=== PATIENT | female | born 1995 | race African-American/Black ===

== ENCOUNTER 2017-01-13 21:37 | Emergency (ER) | payer MEDICAID, OTHER ==
[~2017-01-13] VITALS: Ht 165.1 cm; Wt 79.9 kg
[~2017-01-13 21:37] MED LIST: IBUP-232 PO; OXYC1TAB63 PO
[2017-01-13 22:03] VITALS: BP 114/86; PULSE 79; RESP 20; TEMP 98.5; O2SAT 98
[2017-01-13] MEDS ORDERED: SODIUM CHLORIDE 0.9% FLUSH 5 ML FLUSH IVF PRN (22:45)
[2017-01-13 22:59] LABS: AUTOMATED NEUTROPHIL # 5.1 TH/MM3 (1.8-7.7); BASOPHIL # 0.2 TH/MM3 (0-0.2); BASOPHIL % 2.1 % (0.0-2.0); EOSINOPHIL # 0.2 TH/MM3 (0-0.4); EOSINOPHIL % 2.4 % (0.0-4.0); HEMATOCRIT 39.4 % (35.0-46.0); HEMO FLAGS DIFF FINAL; LYMPH % 30.4 % (9.0-44.0); LYMPHOCYTE # 2.6 TH/MM3 (1.0-4.8); MEAN CELL VOLUME 85.8 FL (80.0-100.0); MEAN CORPUSCULAR HEMOGLOBIN 28.4 PG (27.0-34.0); MEAN CORPUSCULAR HGB CONC 33.1 % (32.0-36.0); MONO % 6.9 % (0.0-8.0); NEUT % 58.2 % (16.0-70.0); PLATELET COUNT 255 TH/MM3 (150-450); RED BLOOD COUNT 4.59 MIL/MM3 (4.00-5.30); WHITE BLOOD COUNT 8.7 TH/MM3 (4.0-11.0)
[2017-01-13 23:08] LABS: POTASSIUM 3.6 MEQ/L (3.5-5.1)
[2017-01-13 23:09] LABS: BLOOD, URINE NEG (NEG); GLUCOSE,URINE NEG (NEG); KETONE, URINE NEG (NEG); NITRITE,URINE NEG (NEG)
[2017-01-13 23:12] LABS: BICARBONATE 25.9 MEQ/L (21.0-32.0)
[2017-01-13 23:25] LABS: URINE COLOR YELLOW (YELLW/STRAW)
[2017-01-13 23:26] LABS: BACTERIA, URINE FEW /hpf; MUCUS URINE FEW /lpf (OCC)
[2017-01-13 23:28] LABS: COMMENT (UR) CULT NOT INDICATED; CULTURE IF INDICATED CULT NOT INDICATED
[2017-01-13 23:35] VITALS: BP_SYST 121; BP_SYST 123; BP_SYST 133; BP_DIAS 54; BP_DIAS 56; BP_DIAS 64
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
[2017-01-14] MEDS ORDERED: ACETAMINOPHEN 325 MG TAB PO ONE (00:45)
== END 2017-01-14 00:48 | disposition home or self-care (01) ==
LOC: PHED 21:37
DX: M54.2 Cervicalgia (principal); R42 Dizziness and giddiness
CPT/HCPCS: 80048; 81001; 84703; 85025; 99283

== ENCOUNTER 2017-02-16 11:44 | Emergency (ER) | payer MEDICAID, OTHER ==
[~2017-02-16] VITALS: Ht 165.1 cm; Wt 79.8 kg
[2017-02-16 11:57] VITALS: BP 131/71; PULSE 83; RESP 16; TEMP 98.8; O2SAT 98
[2017-02-16 12:18] LABS: GLUCOSE,URINE NEG (NEG); KETONE, URINE NEG (NEG); NITRITE,URINE NEG (NEG); PH, URINE 5.5 (5.0-8.5)
[2017-02-16 12:25] LABS: BLOOD, URINE MOD (NEG)
--- NOTE | 2017-02-16 12:25 | PD ---
HPI . 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 The patient delivered a baby 5 months ago. She is breast-feeding. She has not yet had her first period following delivery. Denies any vaginal discharge or dyspareunia prior to the onset of her symptoms. She does complain of urinary frequency. No dysuria. PFSH Past Medical History ADHD: Yes (TOOK ADDERALL 2 YRS AGO) Asthma: Yes Anxiety: Yes Depression: Yes Developmental Delay: No Diabetes: No Diminished Hearing: No Immunizations Current: Yes Pneumonia: Yes (X 1) Tetanus Vaccination: < 5 Years Influenza Vaccination: Yes ?: Not LMP: no menses breast feeding Menopausal: No : 2 Para: 1 : 1 Social History Alcohol Use: No Tobacco Use: No Substance Use: No Allergies-Medications (Allergen,Severity, Reaction): Coded Allergies: No Known Allergies (Unverified , 02/16/17) Reported Meds & Prescriptions Reported Meds & Active Scripts Active No Active Prescriptions or Reported Medications Review of Systems Except as stated in HPI: all other systems reviewed are Neg Genitourinary: Positive: Frequency, Pelvic Pain, Vaginal Bleeding, No: Dysuria Physical Exam Narrative GENERAL: SKIN: Warm and dry. HEAD: Atraumatic. Normocephalic. EYES: Pupils equal and round. ENT: No nasal bleeding or discharge. Mucous membranes pink and moist. NECK: Trachea midline. CARDIOVASCULAR: Regular rate and rhythm. RESPIRATORY: No accessory muscle use. GASTROINTESTINAL: Abdomen soft, non-tender, nondistended. : Normal external female genitalia. Mild amount of old appearing blood in the vaginal vault. Cervical os is closed. There is no cervical motion tenderness. There is no adnexal tenderness or mass. MUSCULOSKELETAL: No obvious deformities. No edema. NEUROLOGICAL: Awake and alert. No obvious cranial nerve deficits. Motor grossly within normal limits. Normal speech. PSYCHIATRIC: Appropriate mood and affect; insight and judgment normal. Data Data Last Documented VS Vital Signs Date Time Temp Pulse Resp B/P Pulse Ox O2 Delivery O2 Flow Rate FiO2 02/16/17 11:57 98.8 83 16 131/71 98 Orders Gc And Chlamydia Pcr (02/16/17 12:08) Wet Prep Profile (02/16/17 12:08) Urinalysis - C+S If Indicated (02/16/17 12:08) Ed Urine Pregnancytest Poc (02/16/17 12:08) Labs Laboratory Tests Test 02/16/17 02/16/17 12:10 12:20 Urine Collection Type CLEAN CATCH Urine Color STRAW Urine Turbidity CLEAR Urine pH 5.5 Urine Specific [place] 1.002 Urine Protein NEG mg/dL Urine Glucose (UA) NEG mg/dL Urine Ketones NEG mg/dL Urine Occult Blood MOD Urine Nitrite NEG Urine Bilirubin NEG Urine Leukocyte Esterase NEG Urine WBC 0-2 /hpf Urine Squamous Epithelial 0-5 /hpf Cells Microscopic Urinalysis Comment CULT NOT INDICATED Urine Collection Time 1210 Clue Cells (Wet Prep) NONE SEEN Vaginal Trichomonas (Wet Prep) NONE SEEN Vaginal Yeast (Wet Prep) NONE SEEN MDM Medical Decision Making Medical Screen Exam Complete: Yes Emergency Medical Condition: Yes Differential Diagnosis Differential diagnosis of vaginal bleeding includes but is not limited to dysfunctional uterine bleeding, normal menstrual cycle, ectopic , spontaneous AB, PID. Narrative Course Patient presents with mild pelvic pain and vaginal bleeding. She is 5 months status post delivery. She has not yet had a period. I suspect that she is having her first menstrual cycle. Her urine test is negative. UA is negative. Wet prep is negative. 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
[2017-02-16 12:28] LABS: METHOD OF COLLECTION CLEAN CATCH; URINE COLOR STRAW (YELLW/STRAW)
[2017-02-16 12:29] LABS: COMMENT (UR) CULT NOT INDICATED; CULTURE IF INDICATED CULT NOT INDICATED; SQUAMOUS EPITHELIAL CELL URINE 0-5 /hpf (0-5); WBC, URINE 0-2 /hpf (0-5)
[2017-02-16 13:17] VITALS: BP 99/56; PULSE 71; RESP 14; O2SAT 98
[2017-02-16 18:13] LABS: CHLAMYDIA PCR NOT DETECTED (NOT DETECT); NEISSERIA PCR NOT DETECTED (NOT DETECT)
== END 2017-02-16 13:30 | disposition home or self-care (01) ==
LOC: PHED 11:44
DX: N93.9 Abnormal uterine and vaginal bleeding, unspecified (principal)
CPT/HCPCS: 81001; 84703; 87210; 87491; 87591; 99284

== ENCOUNTER 2017-02-19 16:38 | Emergency (ER) | payer MEDICAID, OTHER ==
[~2017-02-19] VITALS: Ht 165.1 cm; Wt 80.0 kg
[2017-02-19 16:40] VITALS: BP 115/61; PULSE 86; RESP 18; TEMP 98.1; O2SAT 98
[2017-02-19] MEDS ORDERED: ADVI200C5 PO (16:42)
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
--- NOTE | 2017-02-19 18:22 | RADHPO ---
EXAM DATE/TIME: 02/19/2017 17:46 [facility] COMPARISON: No previous studies available for comparison. INDICATIONS : Neck pain. RADIATION DOSE: 26.53 CTDIvol (mGy) MEDICAL HISTORY : None SURGICAL HISTORY : None. ENCOUNTER: Initial ACUITY: 1 day PAIN SCALE: 8/10 LOCATION: Bilateral neck TECHNIQUE: Volumetric scanning of the cervical spine was performed. Multiplanar reconstructions in the sagittal, coronal and oblique axial planes were performed. Using automated exposure control and adjustment o f the mA and/or kV according to patient size, radiation dose was kept as low as reasonably achievable to obtain optimal diagnostic quality images. FINDINGS: There is slight cervical kyphosis. No spondylolisthesis. There is no evidence of cervical spine fract ure. No bony canal or foraminal stenosis is identified. There is no evidence of paraspinal hematoma. CONCLUSION: No acute bony injury in the cervical spine. Kwan Malik MD on February 19, 2017 at 18:19 Board Certified Radiologist. This report was verified electronically.
--- NOTE | 2017-02-19 18:24 | RADHPO ---
EXAM DATE/TIME: 02/19/2017 17:46 [facility] COMPARISON: No previous studies available for comparison. INDICATIONS : Cepahlgia. RADIATION DOSE: 60.83 CTDIvol (mGy) MEDICAL HISTORY : None SURGICAL HISTORY : None. ENCOUNTER: Initial ACUITY: 1 day PAIN SCALE: 8/10 LOCATION: cranial TECHNIQUE: Multiple contiguous axial images were obtained of the head. Using automated exposure control and adj ustment of the mA and/or kV according to patient size, radiation dose was kept as low as reasonably a chievable to obtain optimal diagnostic quality images. FINDINGS: CEREBRUM: The ventricles are normal for age. No evidence of midline shift, mass lesion, hemorrhage or acute in farction. No extra-axial fluid collections are seen. POSTERIOR FOSSA: The cerebellum and brainstem are intact. The 4th ventricle is midline. The cerebellopontine angle i s unremarkable. EXTRACRANIAL: The visualized portion of the orbits is intact. SKULL: The calvaria is intact. No evidence of skull fracture. CONCLUSION: Normal examination. Kwan Malik MD on February 19, 2017 at 18:21 Board Certified Radiologist. This report was verified electronically.
== END 2017-02-19 18:42 | disposition home or self-care (01) ==
LOC: PHEFT 16:38
DX: M54.2 Cervicalgia (principal)
CPT/HCPCS: 70450; 72125

== ENCOUNTER 2017-02-28 11:27 | Emergency (ER) | payer MEDICAID, OTHER ==
[~2017-02-28] VITALS: Ht 165.1 cm; Wt 79.5 kg
[~2017-02-28 11:27] MED LIST changes: +ADVI200C5 PO; -IBUP-232 PO; -OXYC1TAB63 PO
[2017-02-28 11:29] VITALS: BP 126/66; PULSE 92; RESP 16; TEMP 98.6; O2SAT 98
--- NOTE | 2017-02-28 11:40 | PD ---
Physical Exam Date Seen by Provider: Feb 28, 2017 Time Seen by Provider: 11:37 Narrative Patient here with Left Eye "Flash" with secondary GARCIA since last night. Patient denies Fever or Eye discharge. Patient denies Hx Migraine. GARCIA now 05/18. No Nausea or Vomiting. + photophobia today. V/S reviewed and Stable. Patient awaiting Medical Bed placement. Data Data Last Documented VS Vital Signs Date Time Temp Pulse Resp B/P Pulse Ox O2 Delivery O2 Flow Rate FiO2 02/28/17 11:29 98.6 92 16 126/66 98 Room Air [facility] Medical Record Reviewed: Yes Supervised Visit with BRENT: Yes Condition: Stable Tad Bravo Feb 28, 2017 11:40
--- NOTE | 2017-02-28 12:58 | PD ---
HPI Chief Complaint: Eye Problems/Injury Time Seen by Provider: 12:44 Travel History International Travel<30 days: No Contact w/Intl Traveler<30days: No Traveled to known affect area: No History of Present Illness HPI Patient 21-year-old female presents emergency department for evaluation of some mild blurred vision in the left eye associated with a flash of light that she had last night. Patient states she's had a mild headache bifrontal since that time as well. She googled her symptoms at home and thought she might have a retinal detachment. She does wear glasses. She denies any injuries to her head nor by. Denies any fevers. States she's not had this kind of thing happen to her in the past. She is not taking anything prior to arrival to alleviate her symptoms. [facility] Past Medical History ADHD: Yes (TOOK ADDERALL 2 YRS AGO) Asthma: Yes Anxiety: Yes Depression: Yes Developmental Delay: No Diabetes: No Diminished Hearing: No Herniated Disk: Yes Immunizations Current: Yes Pneumonia: Yes (X 1) ?: Not LMP: 02/21/2017 Menopausal: No : 2 Para: 1 : 1 Social History Alcohol Use: No Tobacco Use: No Substance Use: No Allergies-Medications (Allergen,Severity, Reaction): Coded Allergies: No Known Allergies (Unverified , 02/28/17) Reported Meds & Prescriptions Reported Meds & Active Scripts Active Reported Advil (Ibuprofen) 200 Mg Cap 600 Mg PO ONCE PRN Review of Systems Except as stated in HPI: all other systems reviewed are Neg Physical Exam Narrative GENERAL: Well-developed well-nourished no apparent distress per SKIN: Warm and dry. HEAD: Normocephalic. EYES: No scleral icterus. No injection or drainage. Extra movements are intact and nonpainful. No floor seen uptake bilaterally, Edmond-Pen shows 15 on the left eye. Visual feng are intact. Pupils are PERRLA. No abnormalities are seen. 20/25 in the left eye 20/25 in the right eye 20/20 in both eyes. Funduscopy shows no papilledema, red reflex present bilaterally. No retinal abnormality is seen. NECK: Supple, trachea midline. No JVD or lymphadenopathy. CARDIOVASCULAR: Regular rate and rhythm without murmurs, gallops, or rubs. RESPIRATORY: Breath sounds equal bilaterally. No accessory muscle use. GASTROINTESTINAL: Abdomen soft, non-tender, nondistended. MUSCULOSKELETAL: No cyanosis, or edema. BACK: Nontender without obvious deformity. No CVA tenderness. Data Data Last Documented VS Vital Signs Date Time Temp Pulse Resp B/P Pulse Ox O2 Delivery O2 Flow Rate FiO2 02/28/17 11:29 98.6 92 16 126/66 98 Room Air Orders Ed Poc Ultrasound (02/28/17 ) Proparacaine 0.5% Opth Soln (Alcaine 0.5 (02/28/17 13:00) Fluorescein Strip (Eaadc-L-Cpunkn A.T.) (02/28/17 13:00) Acetaminophen (Tylenol) (02/28/17 14:00) MDM Medical Decision Making Medical Screen Exam Complete: Yes Emergency Medical Condition: Yes Differential Diagnosis Blurred vision, visual disturbance, random detachment likely, cough, likely, conjunctival hemorrhage unlikely. Acute intracranial abnormality extremely unlikely. Narrative Course Patient was roomed in the emergency department, she appears well in no apparent distress. she is breast-feeding was offered Tylenol for her pain which she accepted. Her eye exam is completely within normal limits. Vision is intact. Discussed with the patient this could represent complex migraine however I recommended that she follow up with her facetor for complete eye exam. She is agreeable at this time. She stable for discharge. Diagnosis Primary Impression: Blurred vision, left eye Additional Instructions: Recommend follow-up with your facetor by phone on Thursday. If her symptoms worsen the return to the ED. Disposition: 01 DISCHARGE HOME Condition: Stable Ryan Nicole MD Feb 28, 2017 12:58
[2017-02-28] MEDS ORDERED: PROPARACAINE HCL 0.5% OPHT SOLN 15 ML BTL EACH EYE ONE (13:00)
[2017-02-28] MEDS ORDERED: FLUORESCEIN SOD 1 MG STRIP EACH EYE ONE (13:00)
[2017-02-28] MEDS ORDERED: ACETAMINOPHEN 325 MG TAB PO ONE (14:00)
== END 2017-02-28 13:49 | disposition home or self-care (01) ==
LOC: NEPD 11:27
DX: H53.8 Other visual disturbances (principal); R51 Headache; Z87.09 Personal history of other diseases of the respiratory system; Z87.39 Personal history of other diseases of the musculoskeletal system and connective tissue; Z87.01 Personal history of pneumonia (recurrent); Z86.59 Personal history of other mental and behavioral disorders
CPT/HCPCS: 99283

== ENCOUNTER 2017-03-02 20:51 | Emergency (ER) | payer MEDICAID, OTHER ==
[~2017-03-02] VITALS: Ht 165.1 cm; Wt 79.5 kg
[2017-03-02 20:53] VITALS: BP 131/74; PULSE 75; RESP 16; TEMP 98.2; O2SAT 99
[2017-03-02] MEDS ORDERED: predniSONE 20 MG TAB PO ONE (21:30)
[2017-03-02] MEDS: RESP: ALBUTEROL 2.5 MG/IPRATROPIUM 0.5 MG NEB (SCH) INH ×2 (22:37→22:38)
[2017-03-03] MEDS ORDERED: PRED20 PO
[2017-03-03] MEDS ORDERED: ALBUAER3 INH
--- NOTE | 2017-03-03 | PD ---
HPI Chief Complaint: Respiratory Distress Time Seen by Provider: 21:16 Travel History International Travel<30 days: No Contact w/Intl Traveler<30days: No Traveled to known affect area: No History of Present Illness HPI Patient is a 21-year-old female who presents to emergency room with complaint of asthma exacerbation. She reports that symptoms began 30 minutes prior to coming to emergency room. Patient reports that she did not have a rescue inhaler so she came to emergency room for evaluation. Patient denies any fevers or chills. Denies cough or congestion. PFSH Past Medical History ADHD: Yes (TOOK ADDERALL 2 YRS AGO) Asthma: Yes Anxiety: Yes Depression: Yes Developmental Delay: No Diabetes: No Diminished Hearing: No Herniated Disk: Yes Respiratory: Yes (ASTHMA) Immunizations Current: Yes Pneumonia: Yes (X 1) Tetanus Vaccination: Unknown Influenza Vaccination: No ?: Not LMP: 02-21-17 Menopausal: No : 1 Para: 1 : 1 Past Surgical History Surgical History: No Previous Surgery Social History Alcohol Use: No Tobacco Use: No Substance Use: No Allergies-Medications (Allergen,Severity, Reaction): Coded Allergies: No Known Allergies (Unverified , 03/02/17) Reported Meds & Prescriptions Reported Meds & Active Scripts Active Prednisone 20 Mg Tab 20 Mg PO BID 5 Days Proair Hfa 8.5 GM Inh (Albuterol Sulfate) 90 Mcg/Act Aer 2 Puff INH Q4-6H PRN 108 mcg/actuation Review of Systems General / Constitutional: No: Fever Eyes: No: Visual changes HENT: No: Headaches Cardiovascular: No: Chest Pain or Discomfort Respiratory: Positive: Shortness of Breath, Wheezing, No: Cough Gastrointestinal: No: Abdominal Pain Genitourinary: No: Dysuria Musculoskeletal: No: Pain Skin: No Rash Neurologic: No: Weakness Psychiatric: No: Depression Endocrine: No: Polydipsia Hematologic/Lymphatic: No: Easy Bruising Physical Exam Narrative GENERAL: No acute distress, nontoxic SKIN: Focused skin assessment warm/dry. HEAD: Atraumatic. Normocephalic. EYES: Pupils equal and round. No scleral icterus. No injection or drainage. ENT: No nasal bleeding or discharge. Mucous membranes pink and moist. NECK: Trachea midline. No JVD. CARDIOVASCULAR: Regular rate and rhythm. No murmur appreciated. RESPIRATORY: No accessory muscle use. Minimal wheezing on exam. Breath sounds equal bilaterally. GASTROINTESTINAL: Abdomen soft, non-tender, nondistended. Hepatic and splenic margins not palpable. MUSCULOSKELETAL: No obvious deformities. No clubbing. No cyanosis. No edema. NEUROLOGICAL: Awake and alert. No obvious cranial nerve deficits. Motor grossly within normal limits. Normal speech. PSYCHIATRIC: Appropriate mood and affect; insight and judgment normal. Data Data Last Documented VS Vital Signs Date Time Temp Pulse Resp B/P Pulse Ox O2 Delivery O2 Flow Rate FiO2 03/02/17 21:14 67 20 97 03/02/17 20:53 98.2 131/74 Room Air Orders Prednisone (Deltasone) (03/02/17 21:30) Albuterol-Ipratropium Neb (Duoneb Neb) (03/02/17 21:30) [facility] Medical Decision Making Medical Screen Exam Complete: Yes Emergency Medical Condition: Yes Interpretation(s) Vital Signs Date Time Temp Pulse Resp B/P Pulse Ox O2 Delivery O2 Flow Rate FiO2 03/02/17 21:14 67 20 97 03/02/17 20:53 98.2 75 16 131/74 99 Room Air Differential Diagnosis Asthma exacerbation Narrative Course 21-year-old female with history of asthma, presents to emergency room with complaints of asthma exacerbation. Patient reports the symptoms of shortness of breath and wheezing began 30 minutes prior to arrival to emergency room. Patient was given steroids as well as neb treatments. Patient ultimately felt better after her treatments. Patient discharged home with steroids and neb treatments. Signs and symptoms of when to return to the emergency room was reviewed patient in detail. Diagnosis Primary Impression: Asthma Qualified Code: J45.909 - Uncomplicated asthma, unspecified asthma severity Patient Instructions: General Instructions Additional Instructions: Please follow up with the primary care doctor in 2-3 days Return to the emergency room as needed Take all medications as prescribed Med/Other Pt SpecificInfo: Prescription(s) given Scripts Prednisone 20 Mg Tab20 Mg PO BID 5 Days Ref 0 Prov:Heather Hahn DO 03/03/17 Albuterol 8.5 GM Inh (Proair Hfa 8.5 GM Inh)90 Mcg/Act Aer2 Puff INH Q4-6H PRN ( SHORTNESS OF BREATH) #1 INHALER Ref 0 108 mcg/actuation Prov:Heather Hahn DO 03/03/17 Disposition: 01 DISCHARGE HOME Condition: Stable Heather Hahn DO Mar 03, 2017 00:00
[2017-03-03] MEDS ORDERED: COMPRESSOR NEBU1 MIS ×2 (22:38→22:39)
[2017-03-03] MEDS ORDERED: ALBU.5I NEB (22:38)
== END 2017-03-03 00:13 | disposition home or self-care (01) ==
LOC: NEPD 20:51
DX: J45.909 Unspecified asthma, uncomplicated (principal)
CPT/HCPCS: 94640; 94664; 99283; J7512

== ENCOUNTER 2017-03-03 21:35 | Emergency (ER) | payer MEDICAID, OTHER ==
[~2017-03-03] VITALS: Ht 165.1 cm; Wt 79.0 kg
[~2017-03-03 21:35] MED LIST changes: -ADVI200C5 PO; +ALBUAER3 INH; +PRED20 PO
[2017-03-03 21:40] VITALS: BP 128/68; PULSE 85; RESP 18; TEMP 98.1; O2SAT 97
[2017-03-03 21:50] VITALS: O2SAT 98
[2017-03-03] MEDS ORDERED: RESP: ALBUTEROL 2.5 MG/IPRATROPIUM 0.5 MG NEB (SCH) INH ONE (22:15)
--- NOTE | 2017-03-03 22:18 | PD ---
HPI Chief Complaint: Respiratory Symptoms Time Seen by Provider: 22:15 Travel History International Travel<30 days: No Contact w/Intl Traveler<30days: No Traveled to known affect area: No History of Present Illness HPI 21-year-old [place] female resents emergency department with question worsening asthma symptoms. Patient is concerned that she may have pneumonia. Patient was seen yesterday by Dr. Hahn and Rosey Schaefer, and diagnosed with asthma and given prednisone 20 mg twice a day 5 days as well as an albuterol inhaler. She states she did not fill her prescriptions due to cost issues. Patient feels that she is more congested today than she was yesterday. She denies fever, chills, nausea, vomiting or other constitutional symptoms. She is breast-feeding her 5-month-old daughter. She has no known drug allergies. PFSH Past Medical History ADHD: Yes (TOOK ADDERALL 2 YRS AGO) Asthma: Yes Anxiety: Yes Depression: Yes Developmental Delay: No Diabetes: No Diminished Hearing: No Herniated Disk: Yes Respiratory: Yes (ASTHMA) Immunizations Current: Yes Pneumonia: Yes (X 1) Tetanus Vaccination: < 5 Years Influenza Vaccination: Yes ?: Not LMP: 02-16-17 Menopausal: No : 1 Para: 1 : 1 Past Surgical History Surgical History: No Previous Surgery Social History Alcohol Use: No Tobacco Use: No Substance Use: No Allergies-Medications (Allergen,Severity, Reaction): Coded Allergies: No Known Allergies (Unverified , 03/03/17) Reported Meds & Prescriptions Reported Meds & Active Scripts Active Compressor Nebulizer 1 Mis Mis 1 Ea .ROUTE DIRECTED Albuterol Neb (Albuterol Sulfate) 2.5 Mg/0.5 Ml Neb 2.5 Mg NEB QID NEB Note: The Albuterol Sulfate Inhalation Solution is concentrated and must be diluted. Read complete instructions carefully before using. Prednisone 20 Mg Tab 20 Mg PO BID 5 Days Proair Hfa 8.5 GM Inh (Albuterol Sulfate) 90 Mcg/Act Aer 2 Puff INH Q4-6H PRN 108 mcg/actuation Review of Systems Except as stated in HPI: all other systems reviewed are Neg General / Constitutional: No: Fever, Chills Eyes: No: Visual changes HENT: No: Headaches Cardiovascular: No: Chest Pain or Discomfort Respiratory: Positive: Cough, Shortness of Breath, Wheezing Gastrointestinal: No: Abdominal Pain Genitourinary: No: Dysuria Musculoskeletal: No: Pain Skin: No Rash Neurologic: No: Weakness Psychiatric: No: Depression Endocrine: No: Polydipsia Hematologic/Lymphatic: No: Easy Bruising Physical Exam Narrative GENERAL: Patient appears in no acute distress. Vital signs are reviewed. SKIN: Warm and dry. Normal color. Normal turgor. HEAD: Atraumatic. Normocephalic. EYES: Pupils equal and round. No scleral icterus. No injection or drainage. ENT: No nasal bleeding or discharge. Mucous membranes pink and moist. NECK: Trachea midline. Supple and nontender. CARDIOVASCULAR: Regular rate and rhythm. RESPIRATORY: No accessory muscle use. Diffuse wheezing to auscultation. Breath sounds equal bilaterally. GASTROINTESTINAL: Abdomen soft, non-tender, nondistended. Hepatic and splenic margins not palpable. MUSCULOSKELETAL: Extremities without clubbing, cyanosis, or edema. No obvious deformities. NEUROLOGICAL: Awake and alert. No obvious cranial nerve deficits. Motor grossly within normal limits. Five out of 5 muscle strength in the arms and legs. Normal speech. PSYCHIATRIC: Appropriate mood and affect; insight and judgment normal. Data Data Last Documented VS Vital Signs Date Time Temp Pulse Resp B/P Pulse Ox O2 Delivery O2 Flow Rate FiO2 03/03/17 21:58 98 Room Air 03/03/17 21:50 03/03/17 21:40 98.1 85 18 Orders Albuterol-Ipratropium Neb (Duoneb Neb) (03/03/17 22:15) [facility] Medical Decision Making Medical Screen Exam Complete: Yes Emergency Medical Condition: Yes Differential Diagnosis Bronchitis. Pneumonia. Asthma exacerbation. Noncompliance. Narrative Course It is noted that this patient has been to the emergency department 5 times in the last month. She is medically stable at time of exam. Patient is given a DuoNeb 1. Chest x-ray PA and lateral are ordered. Patient felt much improved after her DuoNeb and requests not having the chest x- ray. Patient is felt stable to be discharged home. She is given a prescription for a nebulizer with equipment as well as albuterol unit dose vials one every 4-6 hours #120. Patient is to start her prednisone as previously prescribed. She is referred to her primary care physician for further evaluation and treatment as needed. Diagnosis Primary Impression: Asthma Qualified Code: J45.21 - Mild intermittent asthma with acute exacerbation Referrals: [facility] call for appointment Primary Care Physician call for appointment Patient Instructions: Asthma (ED), General Instructions Additional Instructions: Patient is given a DuoNeb 1. Chest x-ray PA and lateral are ordered. Patient felt much improved after her DuoNeb and requests not having the chest x- ray. Patient is felt stable to be discharged home. She is given a prescription for a nebulizer with equipment as well as albuterol unit dose vials one every 4-6 hours #120. Patient is to start her prednisone as previously prescribed. She is referred to her primary care physician for further evaluation and treatment as needed. Med/Other Pt SpecificInfo: No Change to Meds Scripts Compressor Nebulizer 1 Mis Mis #1 EA .ROUTE DIRECTED Ref 0 Prov:Yazmin Pimentel MD 03/03/17 Albuterol Neb 2.5 Mg/0.5 Ml Neb2.5 Mg NEB QID NEB #120 NEBULE Ref 0 Note: The Albuterol Sulfate Inhalation Solution is concentrated and must be diluted. Read complete instructions carefully before using. Prov:Yazmin Pimentel MD 03/03/17 Disposition: DISCHARGE HOME Condition: Stable Tad Bravo Mar 03, 2017 22:18
[2017-03-03] MEDS ORDERED: COMPRESSOR NEBU1 MIS ×2 (22:38→22:39)
[2017-03-03] MEDS ORDERED: ALBU.5I NEB (22:38)
== END 2017-03-03 22:49 | disposition home or self-care (01) ==
LOC: PHEFT 21:35
DX: J45.909 Unspecified asthma, uncomplicated (principal)
CPT/HCPCS: 94664; 99283

== ENCOUNTER 2017-03-04 20:33 | Emergency (ER) | payer MEDICAID, OTHER ==
[~2017-03-04] VITALS: Ht 165.1 cm; Wt 80.0 kg
[~2017-03-04 20:33] MED LIST changes: +ALBU.5I NEB; +COMPRESSOR NEBU1 MIS
[2017-03-04 20:35] VITALS: BP 129/61; PULSE 74; RESP 16; TEMP 98.6; O2SAT 98
[2017-03-04] MEDS ORDERED: RESP: ALBUTEROL 2.5 MG/IPRATROPIUM 0.5 MG NEB (SCH) INH ONE (21:00)
--- NOTE | 2017-03-04 21:17 | PD ---
HPI Chief Complaint: Respiratory Symptoms Time Seen by Provider: 21:00 Travel History International Travel<30 days: No Contact w/Intl Traveler<30days: No Traveled to known affect area: No History of Present Illness HPI This is a 21-year-old female with history of asthma who presents for evaluation of "asthma symptoms" Been going on for the past few days. She has had wheezing and cough. This is actually her third visit for this issue. She has been previously prescribed an albuterol inhaler, albuterol nebulizer solution, prednisone however she cannot afford any of these medications and so she comes here requesting an x-ray as well as a nebulizer treatment. She is concerned that she may have pneumonia. No fevers or chills. No abdominal pain, nausea or vomiting. No sick contacts. She is currently breast-feeding and does not want use prednisone for this reason. She has no other complaints. PFSH Past Medical History ADHD: Yes (TOOK ADDERALL 2 YRS AGO) Asthma: Yes Anxiety: Yes Depression: Yes Developmental Delay: No Diabetes: No Diminished Hearing: No Herniated Disk: Yes Respiratory: Yes (ASTHMA) Immunizations Current: Yes Pneumonia: Yes (X 1) ?: Not LMP: 02/16/17 Menopausal: No : 1 Para: 1 : 1 Past Surgical History Surgical History: No Previous Surgery Social History Alcohol Use: No Tobacco Use: No Substance Use: No Allergies-Medications (Allergen,Severity, Reaction): Coded Allergies: No Known Allergies (Unverified , 03/04/17) Reported Meds & Prescriptions Reported Meds & Active Scripts Active Compressor Nebulizer 1 Mis Mis 1 Ea .ROUTE DIRECTED Albuterol Neb (Albuterol Sulfate) 2.5 Mg/0.5 Ml Neb 2.5 Mg NEB QID NEB Note: The Albuterol Sulfate Inhalation Solution is concentrated and must be diluted. Read complete instructions carefully before using. Prednisone 20 Mg Tab 20 Mg PO BID 5 Days Proair Hfa 8.5 GM Inh (Albuterol Sulfate) 90 Mcg/Act Aer 2 Puff INH Q4-6H PRN 108 mcg/actuation Review of Systems Except as stated in HPI: all other systems reviewed are Neg Physical Exam Narrative GENERAL: Well-developed well-nourished female in no acute distress. Vital signs reviewed. SKIN: Warm and dry. HEAD: Atraumatic. Normocephalic. EYES: Pupils equal and round. No scleral icterus. No injection or drainage. ENT: No nasal bleeding or discharge. Mucous membranes pink and moist. NECK: Trachea midline. No JVD. CARDIOVASCULAR: Regular rate and rhythm. No murmur appreciated. RESPIRATORY: No accessory muscle use. Clear to auscultation. Breath sounds equal bilaterally. GASTROINTESTINAL: Abdomen soft, non-tender, nondistended. Hepatic and splenic margins not palpable. MUSCULOSKELETAL: No obvious deformities. No edema. Data Data Last Documented VS Vital Signs Date Time Temp Pulse Resp B/P Pulse Ox O2 Delivery O2 Flow Rate FiO2 03/04/17 20:35 98.6 74 16 129/61 98 Room Air Orders Albuterol-Ipratropium Neb (Duoneb Neb) (03/04/17 21:00) Chest, Pa & Lat (03/04/17 ) [facility] Medical Decision Making Medical Screen Exam Complete: Yes Emergency Medical Condition: Yes Medical Record Reviewed: Yes Differential Diagnosis Asthma exacerbation, bronchitis, pneumonia Narrative Course Physical examination is benign. She has no wheezing currently. Her lungs sound clear. Her vital signs are normal. I suspect a very mild asthma exacerbation versus bronchitis. Recommended getting medications filled as prescribed. Stable for discharge. Diagnosis Primary Impression: Asthma Qualified Code: J45.20 - Mild intermittent asthma without complication Additional Instructions: Medication as prescribed. Follow-up with primary care physician. Return for any emergent medical conditions. Med/Other Pt SpecificInfo: No Change to Meds Disposition: DISCHARGE HOME Condition: Stable Randy Bedoya Mar 04, 2017 21:17
--- NOTE | 2017-03-04 21:21 | RADRPT ---
EXAM DATE/TIME: 03/04/2017 21:20 [facility] COMPARISON: No previous studies available for comparison. INDICATIONS : Cough and congestion. MEDICAL HISTORY : Asthma. SURGICAL HISTORY : None. ENCOUNTER: Initial ACUITY: 3 days PAIN SCORE: 0/10 LOCATION: Bilateral chest FINDINGS: PA and lateral views of the chest demonstrate the lungs to be symmetrically aerated without evidence of mass, infiltrate or effusion. The cardiomediastinal contours are unremarkable. Osseous structure s are intact. CONCLUSION: No evidence of acute cardiopulmonary disease. Kwan Merino MD on March 04, 2017 at 21:19 Board Certified Radiologist. This report was verified electronically.
== END 2017-03-04 22:02 | disposition home or self-care (01) ==
LOC: NEPK 20:33
DX: J45.909 Unspecified asthma, uncomplicated (principal); R05 Cough
CPT/HCPCS: 71020; 94664; 99283

== ENCOUNTER 2017-03-06 20:45 | Emergency (ER) | payer MEDICAID, OTHER ==
[~2017-03-06] VITALS: Ht 165.1 cm; Wt 79.4 kg
[2017-03-06 20:52] VITALS: BP 134/79; PULSE 67; RESP 14; TEMP 98.2; O2SAT 100
[2017-03-06] MEDS ORDERED: ALUMINUM/MAGNESIUM/SIMETH 30 ML CUP PO ONE (21:15)
--- NOTE | 2017-03-06 21:19 | PD ---
HPI Chief Complaint: OD/ Ingestion Time Seen by Provider: 21:12 Travel History International Travel<30 days: No Contact w/Intl Traveler<30days: No Traveled to known affect area: No History of Present Illness HPI The patient is a 21-year-old female that washed a jacques and bleach and then rinsed the jacques thoroughly and then cooked food in the jacques. The food tasted like bleach. The patient ate the food at approximately 1930 this afternoon. The patient later developed epigastric pain. She states it is a 7/10. The patient has no history of ulcer. He is not nauseated and has not vomited. She denies any melanotic or bloody stools. She denies any fever. PFSH Past Medical History ADHD: Yes (TOOK ADDERALL 2 YRS AGO) Asthma: Yes Anxiety: Yes Depression: Yes Developmental Delay: No Diabetes: No Diminished Hearing: No Herniated Disk: Yes Respiratory: Yes (ASTHMA) Immunizations Current: Yes Pneumonia: Yes (X 1) Menopausal: No : 1 Para: 1 : 1 Social History Alcohol Use: No Tobacco Use: No Substance Use: No Allergies-Medications (Allergen,Severity, Reaction): Coded Allergies: No Known Allergies (Unverified , 03/04/17) Reported Meds & Prescriptions Reported Meds & Active Scripts Active Compressor Nebulizer 1 Mis Mis 1 Ea .ROUTE DIRECTED Albuterol Neb (Albuterol Sulfate) 2.5 Mg/0.5 Ml Neb 2.5 Mg NEB QID NEB Note: The Albuterol Sulfate Inhalation Solution is concentrated and must be diluted. Read complete instructions carefully before using. Prednisone 20 Mg Tab 20 Mg PO BID 5 Days Proair Hfa 8.5 GM Inh (Albuterol Sulfate) 90 Mcg/Act Aer 2 Puff INH Q4-6H PRN 108 mcg/actuation Review of Systems Except as stated in HPI: all other systems reviewed are Neg Physical Exam Narrative GENERAL: Well-nourished, well-developed patient in minimal apparent distress with her epigastric pain. Her vital signs are normal.. SKIN: Focused skin assessment warm/dry. HEAD: Normocephalic. EYES: No scleral icterus. No injection or drainage. NECK: Supple, trachea midline. No JVD or lymphadenopathy. CARDIOVASCULAR: Regular rate and rhythm without murmurs, gallops, or rubs. RESPIRATORY: Breath sounds equal bilaterally. No accessory muscle use. GASTROINTESTINAL: Abdomen soft, non-tender, nondistended. No guarding or rebound is present. MUSCULOSKELETAL: No cyanosis, or edema. BACK: Nontender without obvious deformity. No CVA tenderness. Data Data Last Documented VS Vital Signs Date Time Temp Pulse Resp B/P Pulse Ox O2 Delivery O2 Flow Rate FiO2 03/06/17 20:52 98.2 67 14 134/79 100 Orders Al-Mag Hy-Si 40-40-4 Mg/Ml Liq (Mag-Al P (03/06/17 21:15) [facility] Medical Decision Making Medical Screen Exam Complete: Yes Emergency Medical Condition: Yes Medical Record Reviewed: Yes Differential Diagnosis Minimal bleach ingestion, significant bleach ingestion, reflux esophagitis, ulcer pain Narrative Course The patient appears to have minimal bleach ingestion. She may also have some GERD. Plan: The patient is to drink water and milk. She should elevate the head of her bed her stay in sitting position to keep acid from reaching the esophagus. Diagnosis Primary Impression: Bleach ingestion Additional Instructions: As we discussed, elevate the head of her bed, stay in the sitting position and drink milk and water. This is a minimal amount of bleach ingestion and this should clear up within one day. Med/Other Pt SpecificInfo: No Change to Meds Disposition: 01 DISCHARGE HOME Condition: Stable Jeffery Johnson MD Mar 06, 2017 21:19
[2017-03-06 21:47] VITALS: BP 132/70
[2017-03-07] MEDS ORDERED: ALBU.5I NEB (08:34)
== END 2017-03-06 22:06 | disposition home or self-care (01) ==
LOC: PHED 20:45
DX: R10.13 Epigastric pain (principal); T54.91XA Toxic effect of unspecified corrosive substance, accidental (unintentional), initial encounter; J45.909 Unspecified asthma, uncomplicated; Y92.9 Unspecified place or not applicable
CPT/HCPCS: 99284

== ENCOUNTER 2017-03-07 05:34 | Emergency (ER) | payer MEDICAID, OTHER ==
[~2017-03-07] VITALS: Ht 165.1 cm; Wt 80.0 kg
[~2017-03-07 05:34] MED LIST changes: -PRED20 PO
[2017-03-07 05:36] VITALS: BP 139/80; PULSE 73; RESP 16; TEMP 98.1; O2SAT 99
--- NOTE | 2017-03-07 07:11 | PD ---
HPI Chief Complaint: Chest Pain Time Seen by Provider: 07:06 Travel History International Travel<30 days: No Contact w/Intl Traveler<30days: No Traveled to known affect area: No History of Present Illness HPI Patient 21-year-old female with a history of asthma presents emergency Department with chest tightness and shortness of breath particularly worse at night. Patient states currently she feels fairly well. She states that her asthma has been getting worse particularly at nights over the past few weeks. She denies any upper respiratory symptoms: No fever no congestion no runny nose or earaches. Patient states she's chiefly here for refill of her nebulizer solution. Denies any abdominal pain nausea vomiting diarrhea vaginal bleeding or vaginal discharg. States intermittent sharp pain in her chest when taking a deep breath. Symptoms waxing and waning. PFSH Past Medical History ADHD: Yes (TOOK ADDERALL 2 YRS AGO) Asthma: Yes Anxiety: Yes Depression: Yes Developmental Delay: No Diabetes: No Diminished Hearing: No Herniated Disk: Yes Respiratory: Yes (ASTHMA) Immunizations Current: Yes Pneumonia: Yes (X 1) ?: Not LMP: 02/16/17 Menopausal: No : 1 Para: 1 : 1 Past Surgical History Surgical History: No Previous Surgery Social History Alcohol Use: No Tobacco Use: No Substance Use: No Allergies-Medications (Allergen,Severity, Reaction): Coded Allergies: No Known Allergies (Unverified , 03/07/17) Reported Meds & Prescriptions Reported Meds & Active Scripts Active Albuterol Neb (Albuterol Sulfate) 2.5 Mg/0.5 Ml Neb 2.5 Mg NEB QID NEB Note: The Albuterol Sulfate Inhalation Solution is concentrated and must be diluted. Read complete instructions carefully before using. Compressor Nebulizer 1 Mis Mis 1 Ea .ROUTE DIRECTED Proair Hfa 8.5 GM Inh (Albuterol Sulfate) 90 Mcg/Act Aer 2 Puff INH Q4-6H PRN 108 mcg/actuation Review of Systems Except as stated in HPI: all other systems reviewed are Neg Physical Exam Narrative GENERAL: Well-developed well-nourished distress SKIN: Focused skin assessment warm/dry. HEAD: Atraumatic. Normocephalic. EYES: Pupils equal and round. No scleral icterus. No injection or drainage. ENT: No nasal bleeding or discharge. Mucous membranes pink and moist. NECK: Trachea midline. No JVD. CARDIOVASCULAR: Regular rate and rhythm. No murmur appreciated. RESPIRATORY: No accessory muscle use. Clear to auscultation. Breath sounds equal bilaterally. No increased work of breathing GASTROINTESTINAL: Abdomen soft, non-tender, nondistended. Hepatic and splenic margins not palpable. MUSCULOSKELETAL: No obvious deformities. No clubbing. No cyanosis. No edema. NEUROLOGICAL: Awake and alert. No obvious cranial nerve deficits. Motor grossly within normal limits. Normal speech. PSYCHIATRIC: Appropriate mood and affect; insight and judgment normal. Data Data Last Documented VS Vital Signs Date Time Temp Pulse Resp B/P Pulse Ox O2 Delivery O2 Flow Rate FiO2 03/07/17 05:36 98.1 73 16 139/80 99 Room Air Orders Albuterol-Ipratropium Neb (Duoneb Neb) (03/07/17 07:15) [facility] Medical Decision Making Medical Screen Exam Complete: Yes Emergency Medical Condition: Yes Differential Diagnosis Asthma exacerbation, medication refill, ACS highly unlikely, PE excluded by wells and perc criteria. Narrative Course Patient was roomed emerged primary, she was given a DuoNeb. There is no indication for chest x-ray or further emergent workup. She appears well she is saturating well she is in no distress. I have refilled her albuterol for home. She is stable for discharge that time. Discussed return to ED criteria need follow-up the primary care physician. Diagnosis Primary Impression: Asthma exacerbation, mild Med/Other Pt SpecificInfo: Prescription(s) given Scripts Albuterol Neb 2.5 Mg/0.5 Ml Neb2.5 Mg NEB QID NEB #60 NEBULE Ref 0 Note: The Albuterol Sulfate Inhalation Solution is concentrated and must be diluted. Read complete instructions carefully before using. Prov:Ryan Nicole MD 03/07/17 Disposition: DISCHARGE HOME Condition: Stable Ryan Nicole MD Mar 07, 2017 07:11
[2017-03-07] MEDS ORDERED: RESP: ALBUTEROL 2.5 MG/IPRATROPIUM 0.5 MG NEB (SCH) NEB ONE (07:15)
[2017-03-07] MEDS ORDERED: ALBU.5I NEB (08:34)
== END 2017-03-07 08:45 | disposition home or self-care (01) ==
LOC: NEPE 05:34
DX: J45.901 Unspecified asthma with (acute) exacerbation (principal)
CPT/HCPCS: 94664; 99283

== ENCOUNTER 2017-03-24 12:29 | Emergency (ER) | payer MEDICAID, OTHER ==
[~2017-03-24] VITALS: Ht 165.1 cm; Wt 79.1 kg
[2017-03-24 12:35] VITALS: BP 120/72; PULSE 80; RESP 16; TEMP 98.3; O2SAT 98
[2017-03-24] MEDS ORDERED: SODIUM CHLOR 0.9% 1000 ML INJ 1,000 ML IV ONE (12:57)
[2017-03-24] MEDS ORDERED: SODIUM CHLORIDE 0.9% FLUSH 10 ML FLUSH IVF PRN (13:00)
--- NOTE | 2017-03-24 13:01 | PD ---
HPI Chief Complaint: Cold / Flu Symptoms Time Seen by Provider: 12:58 Travel History International Travel<30 days: No Contact w/Intl Traveler<30days: No Traveled to known affect area: No History of Present Illness HPI 21-year-old female presents to the emergency department for evaluation of dizziness, palpitations, low-grade fevers that started last night. Patient states she was recently treated for mastitis. She had antibiotics one week ago and finished them yesterday. She states the erythema and pain of her breast has cleared. She denies any syncopal episodes. Patient states that she is late for her menstrual cycle, but does not believe she is . She is currently breast-feeding. Patient denies any chest pain. No shortness of breath. No abdominal pain. No vomiting. Patient states that she is concerned that she has sepsis from her mastitis. Patient does have history of asthma and uses albuterol inhaler as needed. She denies any other complaints. She states her last night was 100.2. PFSH Past Medical History ADHD: Yes (TOOK ADDERALL 2 YRS AGO) Asthma: Yes Anxiety: Yes Depression: Yes Developmental Delay: No Diabetes: No Diminished Hearing: No Herniated Disk: Yes Respiratory: Yes (ASTHMA) Immunizations Current: Yes Pneumonia: Yes (X 1) Tetanus Vaccination: < 5 Years Influenza Vaccination: Yes ?: Not Menopausal: No : 1 Para: 1 : 1 Past Surgical History Surgical History: No Previous Surgery Social History Alcohol Use: No Tobacco Use: No Substance Use: No Allergies-Medications (Allergen,Severity, Reaction): Coded Allergies: No Known Allergies (Unverified , 03/24/17) Reported Meds & Prescriptions Reported Meds & Active Scripts Active Albuterol Neb (Albuterol Sulfate) 2.5 Mg/0.5 Ml Neb 2.5 Mg NEB QID NEB Note: The Albuterol Sulfate Inhalation Solution is concentrated and must be diluted. Read complete instructions carefully before using. Reported Keflex (Cephalexin) 500 Mg Cap 500 Mg PO Q6H Review of Systems Except as stated in HPI: all other systems reviewed are Neg Physical Exam Narrative GENERAL: Well-nourished, well-developed female patient, ambulatory. Afebrile. SKIN: Focused skin assessment warm/dry. No erythema or warmth to breast. No evidence of mastitis. HEAD: Normocephalic. Atraumatic. EYES: No scleral icterus. No injection or drainage. NECK: Supple, trachea midline. No JVD or lymphadenopathy. CARDIOVASCULAR: Regular rate and rhythm without murmurs, gallops, or rubs. RESPIRATORY: Breath sounds equal bilaterally. No accessory muscle use. Lungs sounds are clear to auscultation. GASTROINTESTINAL: Abdomen soft, non-tender, nondistended. MUSCULOSKELETAL: No cyanosis, or edema. Bilateral upper and lower extremity strength 5/5. All extremities are neurovascularly intact. BACK: Nontender without obvious deformity. No CVA tenderness. NEUROLOGICAL: Awake and alert. Cranial nerves II through XII intact. Motor and sensory grossly within normal limits. Five out of 5 muscle strength in all muscle groups. Normal speech. Finger to nose is normal bilaterally. Heel-to- garcia is normal bilaterally. Data Data Last Documented VS Vital Signs Date Time Temp Pulse Resp B/P Pulse Ox O2 Delivery O2 Flow Rate FiO2 03/24/17 12:35 98.3 80 16 120/72 98 Orders Electrocardiogram (03/24/17 12:57) Basic Metabolic Panel (Bmp) (03/24/17 12:57) Ed Urine Pregnancytest Poc (03/24/17 12:57) Complete Blood Count With Diff (03/24/17 12:57) Urinalysis - C+S If Indicated (03/24/17 12:57) Ecg Monitoring (03/24/17 12:57) Iv Access Insert/Monitor (03/24/17 12:57) Oximetry (03/24/17 12:57) Sodium Chloride 0.9% Flush (Ns Flush) (03/24/17 13:00) Sodium Chlor 0.9% 1000 Ml Inj (Ns 1000 M (03/24/17 12:57) Influenzae A/B Antigen (03/24/17 12:57) Labs Laboratory Tests Test 03/24/17 03/24/17 13:00 13:20 Urine Collection Type VOIDED Urine Color YELLOW Urine Turbidity CLEAR Urine pH 6.0 Urine Specific [place] 1.011 Urine Protein NEG mg/dL Urine Glucose (UA) NEG mg/dL Urine Ketones NEG mg/dL Urine Occult Blood SMALL Urine Nitrite NEG Urine Bilirubin NEG Urine Leukocyte Esterase NEG Urine RBC 0-3 /hpf Urine WBC 0-2 /hpf Urine Squamous Epithelial > 8 /hpf Cells Urine Bacteria RARE /hpf Microscopic Urinalysis Comment CULT NOT INDICATED Urine Collection Time 1300 White Blood Count 6.8 TH/MM3 Red Blood Count 4.66 MIL/MM3 Hemoglobin 13.6 GM/DL Hematocrit 39.8 % Mean Corpuscular Volume 85.4 FL Mean Corpuscular Hemoglobin 29.3 PG Mean Corpuscular Hemoglobin 34.2 % Concent Red Cell Distribution Width 12.3 % Platelet Count 262 TH/MM3 Mean Platelet Volume 8.8 FL Neutrophils (%) (Auto) 55.1 % Lymphocytes (%) (Auto) 33.4 % Monocytes (%) (Auto) 7.3 % Eosinophils (%) (Auto) 3.3 % Basophils (%) (Auto) 0.9 % Neutrophils # (Auto) 3.7 TH/MM3 Lymphocytes # (Auto) 2.3 TH/MM3 Monocytes # (Auto) 0.5 TH/MM3 Eosinophils # (Auto) 0.2 TH/MM3 Basophils # (Auto) 0.1 TH/MM3 CBC Comment DIFF FINAL Differential Comment Sodium Level 139 MEQ/L Potassium Level 3.6 MEQ/L Chloride Level 105 MEQ/L Carbon Dioxide Level 25.9 MEQ/L Anion Gap 8 MEQ/L Blood Urea Nitrogen 9 MG/DL Creatinine 0.57 MG/DL Estimat Glomerular Filtration 162 ML/MIN Rate Random Glucose 94 MG/DL Calcium Level 9.3 MG/DL [facility] Medical Decision Making Medical Screen Exam Complete: Yes Emergency Medical Condition: Yes Medical Record Reviewed: Yes Differential Diagnosis Viral syndrome versus electrolyte abnormality versus dehydration versus cardiac arrhythmia Narrative Course 21-year-old female presents to the emergency department for evaluation of dizziness, palpitations, low-grade fever that started last night. She does appear well on exam. Physical exam is unremarkable. No focal neurological deficits. EKG, CBC, BMP, influenza, UA, urine test are ordered and pending. EKG shows sinus rhythm, heart rate 71, no acute ST changes. CBC is unremarkable. BMP is unremarkable. Flu is negative. UA is negative for acute infection. UPT is negative. Physical exam and laboratory findings are reassuring. The patient is discharged to follow-up with her primary care physician. She is to rest and drink plenty of fluids. She verbalizes agreement and understanding. Diagnosis Primary Impression: Viral syndrome Additional Impression: Dizziness Referrals: Primary Care Physician call for appointment Patient Instructions: Dizziness (ED), General Instructions, Viral Syndrome (ED) Additional Instructions: Drink Plenty of fluids. Follow-up with your primary care physician. Return to the emergency department for any acute worsening of symptoms. Med/Other Pt SpecificInfo: No Change to Meds Disposition: 01 DISCHARGE HOME Condition: Stable Katharina Smith March 24, 2017 13:01
[2017-03-24] MEDS ORDERED: CEPH-460 PO (13:14)
[2017-03-24 13:20] LABS: BLOOD, URINE SMALL (NEG); GLUCOSE,URINE NEG (NEG); KETONE, URINE NEG (NEG); NITRITE,URINE NEG (NEG)
[2017-03-24 13:28] LABS: METHOD OF COLLECTION VOIDED; URINE COLOR YELLOW (YELLW/STRAW)
[2017-03-24 13:31] LABS: SQUAMOUS EPITHELIAL CELL URINE > 8 /hpf (0-5); WBC, URINE 0-2 /hpf (0-5)
[2017-03-24 13:32] LABS: RBC, URINE 0-3 /hpf (0-3)
[2017-03-24 13:34] LABS: AUTOMATED NEUTROPHIL # 3.7 TH/MM3 (1.8-7.7); BASOPHIL # 0.1 TH/MM3 (0-0.2); BASOPHIL % 0.9 % (0.0-2.0); EOSINOPHIL # 0.2 TH/MM3 (0-0.4); EOSINOPHIL % 3.3 % (0.0-4.0); HEMATOCRIT 39.8 % (35.0-46.0); HEMO FLAGS DIFF FINAL; LYMPH % 33.4 % (9.0-44.0); LYMPHOCYTE # 2.3 TH/MM3 (1.0-4.8); MEAN CELL VOLUME 85.4 FL (80.0-100.0); MEAN CORPUSCULAR HEMOGLOBIN 29.3 PG (27.0-34.0); MEAN CORPUSCULAR HGB CONC 34.2 % (32.0-36.0); MONO % 7.3 % (0.0-8.0); NEUT % 55.1 % (16.0-70.0); PLATELET COUNT 262 TH/MM3 (150-450); RED BLOOD COUNT 4.66 MIL/MM3 (4.00-5.30); RED CELL DISTRIBUTION WIDTH 12.3 % (11.6-17.2); WHITE BLOOD COUNT 6.8 TH/MM3 (4.0-11.0)
[2017-03-24 13:34] LABS: BACTERIA, URINE RARE /hpf; COMMENT (UR) CULT NOT INDICATED; CULTURE IF INDICATED CULT NOT INDICATED
[2017-03-24 13:44] LABS: POTASSIUM 3.6 MEQ/L (3.5-5.1)
[2017-03-24 13:47] LABS: BICARBONATE 25.9 MEQ/L (21.0-32.0)
--- NOTE | 2017-03-25 11:05 | EKG ---
Date Performed: 03/24/2017 Time Performed: 13:07:54 PTAGE: 21 years EKG: Sinus rhythm Normal ECG PREVIOUS TRACING : 05/13/2016 08.18 DOCTOR: Jordin Connolly Interpretating Date/Time 03/25/2017 11:04:30
== END 2017-03-24 14:45 | disposition home or self-care (01) ==
LOC: PHEFT 12:29 → PHED 14:45
DX: B34.9 Viral infection, unspecified (principal); R42 Dizziness and giddiness; R00.2 Palpitations; F90.9 Attention-deficit hyperactivity disorder, unspecified type; J45.909 Unspecified asthma, uncomplicated; F41.9 Anxiety disorder, unspecified; F32.9 Major depressive disorder, single episode, unspecified; Z79.51 Long term (current) use of inhaled steroids
CPT/HCPCS: 80048; 81001; 84703; 85025; 87804; 93005; 96360; 99285; J7030

== ENCOUNTER 2017-06-05 14:12 | Emergency (ER) | payer MEDICAID, OTHER ==
[~2017-06-05] VITALS: Ht 165.1 cm; Wt 79.0 kg
[~2017-06-05 14:12] MED LIST changes: -ALBUAER3 INH; +CEPH-460 PO; -COMPRESSOR NEBU1 MIS
[2017-06-05 14:18] VITALS: BP 126/73; PULSE 72; RESP 20; TEMP 98.3; O2SAT 99
--- NOTE | 2017-06-05 14:32 | PD ---
HPI Chief Complaint: Allergic/Adverse Reaction Time Seen by Provider: 14:28 Travel History International Travel<30 days: No Contact w/Intl Traveler<30days: No Traveled to known affect area: No History of Present Illness HPI 21-year-old female here for possible allergic reaction. Patient was eating cookie butter prior to arrival. Shortly after eating she developed a tingling and an itching sensation in her tongue. No difficulty swallowing, posterior pharyngeal swelling, shortness of breath, lip swelling, etc. She does not have any known food allergies. Patient has not taken anything for her symptoms prior to arrival but states that they are arty spontaneously starting to improve. PFSH Past Medical History ADHD: Yes (TOOK ADDERALL 2 YRS AGO) Asthma: Yes Anxiety: Yes Depression: Yes Developmental Delay: No Diabetes: No Diminished Hearing: No Herniated Disk: Yes Respiratory: Yes (ASTHMA) Immunizations Current: Yes Pneumonia: Yes (X 1) Tetanus Vaccination: < 5 Years ?: Not Menopausal: No : 1 Para: 1 : 1 Past Surgical History Surgical History: No Previous Surgery Social History Alcohol Use: No Tobacco Use: No Substance Use: No Allergies-Medications (Allergen,Severity, Reaction): Coded Allergies: No Known Allergies (Unverified , 06/05/17) Reported Meds & Prescriptions Reported Meds & Active Scripts Active No Active Prescriptions or Reported Medications Review of Systems Except as stated in HPI: all other systems reviewed are Neg Physical Exam Narrative GENERAL: Well-appearing female in no acute distress SKIN: Focused skin assessment warm/dry. No apparent rash HEAD: Normocephalic. EYES: Pupils equal and round. No scleral icterus. No injection or drainage. ENT: Posterior pharynx is clear without evidence of edema, erythema. No nasal bleeding or discharge. Mucous membranes pink and moist. NECK: Supple without stridor CARDIOVASCULAR: Regular rate and rhythm. No murmur appreciated. RESPIRATORY: No accessory muscle use. Clear to auscultation. Breath sounds equal bilaterally. MUSCULOSKELETAL: Normal gait NEUROLOGICAL: Awake and alert. Normal speech. PSYCHIATRIC: Appropriate mood and affect; insight and judgment normal. Data Data Last Documented VS Vital Signs Date Time Temp Pulse Resp B/P Pulse Ox O2 Delivery O2 Flow Rate FiO2 06/05/17 14:29 16 99 Room Air 06/05/17 14:18 98.3 72 126/73 MDM Medical Decision Making Medical Screen Exam Complete: Yes Emergency Medical Condition: Yes Medical Record Reviewed: Yes Differential Diagnosis 21-year-old female here for possible allergic reaction after eating cookie better. Differential includes allergic reaction, anaphylaxis, food allergy Narrative Course Symptoms consistent with mild food allergy. Her symptoms are spontaneously improving. No evidence of anaphylaxis or indications for epinephrine. Patient reassured with conservative management discharged home. Diagnosis Primary Impression: Allergic reaction Qualified Code: T78.40XA - Allergic reaction, initial encounter Referrals: Primary Care Physician as needed Additional Instructions: Do not eat cookie butter. Have Benadryl on hand at the house for any persistent symptoms. Med/Other Pt SpecificInfo: No Change to Meds Scripts No Active Prescriptions or Reported Meds Disposition: DISCHARGE HOME Condition: Stable Ninfa López MD Jun 05, 2017 14:32
== END 2017-06-05 14:51 | disposition home or self-care (01) ==
LOC: PHED 14:12
DX: T78.40XA Allergy, unspecified, initial encounter (principal); Z86.59 Personal history of other mental and behavioral disorders; Z87.09 Personal history of other diseases of the respiratory system; Z87.39 Personal history of other diseases of the musculoskeletal system and connective tissue
CPT/HCPCS: 99282

== ENCOUNTER 2017-09-13 07:25 | Emergency (ER) | payer MEDICAID ==
[~2017-09-13] VITALS: Ht 165.1 cm; Wt 78.0 kg
[2017-09-13 07:27] VITALS: BP 123/56; PULSE 95; RESP 18; TEMP 97.8; O2SAT 99
--- NOTE | 2017-09-13 08:57 | PD ---
HPI Chief Complaint: ENT Complaint Time Seen by Provider: 07:59 Travel History International Travel<30 days: No Contact w/Intl Traveler<30days: No Traveled to known affect area: No History of Present Illness HPI The patient was seen and examined in the presence of the nurse. This patient complains of having her left ear clog with wax. Reports her hearing is diminished there. Not having fever. Severity is mild. Duration 3 days PFSH Past Medical History ADHD: Yes (TOOK ADDERALL 2 YRS AGO) Asthma: Yes Anxiety: Yes Depression: Yes Developmental Delay: No Diabetes: No Diminished Hearing: No Herniated Disk: Yes Respiratory: Yes (ASTHMA) Immunizations Current: Yes Pneumonia: Yes (X 1) Influenza Vaccination: No ?: Not LMP: NOW Menopausal: No : 1 Para: 1 : 1 Social History Alcohol Use: No Tobacco Use: No Substance Use: No Allergies-Medications (Allergen,Severity, Reaction): Coded Allergies: No Known Allergies (Unverified Adverse Reaction, Unknown, 09/13/17) Reported Meds & Prescriptions Reported Meds & Active Scripts Active No Active Prescriptions or Reported Medications Review of Systems General / Constitutional: No: Fever HENT: No: Headaches Cardiovascular: No: Chest Pain or Discomfort Physical Exam Narrative NECK: Symmetrical appearance, midline trachea. No mass or crepitus. Thyroid without enlargement, tenderness, or mass. SKIN: Focused skin assessment reveals no rash or ulcers. Skin is warm and dry. Palpation shows no induration or nodules. Left TM is nonvisible. The cerumen is clogging the ear canal on the left Data Data Last Documented VS Vital Signs Date Time Temp Pulse Resp B/P (MAP) Pulse Ox O2 Delivery O2 Flow Rate FiO2 09/13/17 07:27 97.8 95 18 123/56 (78) 99 MDM Medical Decision Making Medical Screen Exam Complete: Yes Emergency Medical Condition: Yes Medical Record Reviewed: Yes Differential Diagnosis Cerumen impaction, otitis externa, otitis media Narrative Course I have reviewed the patient's electronic medical record. Patient is a very frequent visitor for minor complaints We discussed options. Advised her we could have our tech flush out the ear canal to relieve the wax obstruction She said that she would like that and then didn't want to wait and left while I was in a patient's room Diagnosis Primary Impression: AMA Additional Impression: Excessive cerumen in left ear canal Patient Instructions: General Instructions Departure Forms: Tests/Procedures Scripts No Active Prescriptions or Reported Meds Disposition: 07 AGAINST MEDICAL ADVICE Condition: Fredo Oreilly MD Sep 13, 2017 08:57
== END 2017-09-13 09:00 | disposition left against medical advice (07) ==
LOC: PHED 07:25
DX: H61.22 Impacted cerumen, left ear (principal); Z53.20 Procedure and treatment not carried out because of patient's decision for unspecified reasons; Z87.09 Personal history of other diseases of the respiratory system; Z86.59 Personal history of other mental and behavioral disorders; Z87.39 Personal history of other diseases of the musculoskeletal system and connective tissue
CPT/HCPCS: 99281

== ENCOUNTER 2017-12-03 16:19 | Emergency (ER) | payer MEDICAID ==
[~2017-12-03] VITALS: Ht 165.1 cm; Wt 76.0 kg
[2017-12-03 16:23] VITALS: BP 129/61; PULSE 104; RESP 16; TEMP 99.5; O2SAT 98
[2017-12-03 17:25] LABS: BILIRUBIN, URINE NEG (NEG); BLOOD, URINE NEG (NEG); GLUCOSE,URINE NEG (NEG); KETONE, URINE TRACE mg/dL (NEG); NITRITE,URINE NEG (NEG); URINE LEUKOCYTE ESTERASE NEG (NEG)
[2017-12-03 17:30] LABS: RBC, URINE 0-3 /hpf (0-3); URINE COLOR YELLOW (YELLW/STRAW); WBC, URINE 0-2 /hpf (0-5)
--- NOTE | 2017-12-03 17:43 | PD ---
HPI Chief Complaint: Cold / Flu Symptoms Time Seen by Provider: 16:53 Travel History International Travel<30 days: No Contact w/Intl Traveler<30days: No Traveled to known affect area: No History of Present Illness HPI This is a 22-year-old female here with multiple vague chief complaints. She reports a fever of 101 yesterday. No fever today. Occasional cough. She is reporting some low back pain in the flank region which has now spontaneously resolved. Severity is mild. No aggravating or alleviating factors. No sick contacts or foreign travel. PFSH Past Medical History ADHD: Yes (TOOK ADDERALL 2 YRS AGO) Asthma: Yes Anxiety: Yes Depression: Yes Developmental Delay: No Diabetes: No Diminished Hearing: No Herniated Disk: Yes Respiratory: Yes (ASTHMA) Immunizations Current: Yes Pneumonia: Yes (X 1) ?: Unknown LMP: 11/12/2017 Menopausal: No : 1 Para: 1 : 1 Social History Alcohol Use: No Tobacco Use: No Substance Use: No Allergies-Medications (Allergen,Severity, Reaction): Coded Allergies: No Known Allergies (Unverified Adverse Reaction, Unknown, 12/03/17) Reported Meds & Prescriptions Reported Meds & Active Scripts Active No Active Prescriptions or Reported Medications Review of Systems Except as stated in HPI: all other systems reviewed are Neg General / Constitutional: No: Fever Eyes: No: Visual changes HENT: No: Headaches Cardiovascular: No: Chest Pain or Discomfort Respiratory: Positive: Cough, No: Shortness of Breath Gastrointestinal: No: Abdominal Pain Genitourinary: No: Dysuria Musculoskeletal: No: Pain Skin: No Rash Physical Exam Narrative GENERAL: Alert and nontoxic appearing 22-year-old female. SKIN: Warm and dry. No rash. HEAD: Normocephalic. EYES: No injection or drainage. Ears/nose/throat: No TM erythema. Clear nasal discharge. No pharyngeal erythema, tonsillar hypertrophy or exudate. NECK: Supple, trachea midline. No meningismus CARDIOVASCULAR: Regular rate and rhythm without murmurs, gallops, or rubs. RESPIRATORY: Breath sounds equal bilaterally. No accessory muscle use. No wheezing, rales, rhonchi. GASTROINTESTINAL: Abdomen soft, non-tender, nondistended. MUSCULOSKELETAL: No cyanosis, or edema. BACK: Nontender without obvious deformity. No CVA tenderness. Data Data Last Documented VS Vital Signs Date Time Temp Pulse Resp B/P (MAP) Pulse Ox O2 Delivery O2 Flow Rate FiO2 12/03/17 16:23 99.5 104 16 129/61 (83) 98 Orders Orders Urinalysis - C+S If Indicated (12/03/17 16:58) Ed Urine Pregnancytest Poc (12/03/17 16:58) Ed Discharge Order (12/03/17 17:44) Labs Laboratory Tests Test 12/03/17 17:03 Urine Color YELLOW Urine Turbidity CLOUDY Urine pH 6.0 Urine Specific [place] 1.021 Urine Protein NEG mg/dL Urine Glucose (UA) NEG mg/dL Urine Ketones TRACE mg/dL Urine Occult Blood NEG Urine Nitrite NEG Urine Bilirubin NEG Urine Leukocyte Esterase NEG Urine RBC 0-3 /hpf Urine WBC 0-2 /hpf Urine Squamous Epithelial Cells 6-8 /hpf Microscopic Urinalysis Comment CULT NOT INDICATED MDM Medical Decision Making Medical Screen Exam Complete: Yes Emergency Medical Condition: Yes Differential Diagnosis UTI, viral illness, influenza Narrative Course This is a 22-year-old female here with multiple vague chief complaints. She reports a fever of 101 yesterday. Occasional cough. No fevers today. She is reporting some low back pain in the flank region. On exam she is well- appearing. She does not appear to have the FLU. Her abdomen is soft and nontender. No CVA tenderness. UA is negative for infection. Urine is negative. Diagnosis Primary Impression: Viral illness Referrals: Primary Care Physician Additional Instructions: Tylenol and ibuprofen as needed for pain or fever. Stable hydrated by drinking water and Gatorade. Follow-up with her doctor. Scripts No Active Prescriptions or Reported Meds Disposition: 01 DISCHARGE HOME Condition: Stable Echo Gates Dec 03, 2017 17:43
== END 2017-12-03 17:51 | disposition home or self-care (01) ==
LOC: PHEFT 16:19
DX: B34.9 Viral infection, unspecified (principal); R50.9 Fever, unspecified; R05 Cough; M54.5 Low back pain; Z86.59 Personal history of other mental and behavioral disorders; Z87.09 Personal history of other diseases of the respiratory system; Z87.39 Personal history of other diseases of the musculoskeletal system and connective tissue
CPT/HCPCS: 81001; 84703; 99283

== ENCOUNTER 2017-12-12 10:52 | Emergency (ER) | payer MEDICAID, OTHER ==
[~2017-12-12] VITALS: Ht 165.1 cm; Wt 75.1 kg
[2017-12-12 11:07] VITALS: BP 123/58; PULSE 78; RESP 16; TEMP 97.9; O2SAT 99
--- NOTE | 2017-12-12 11:20 | PD ---
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 The patient is whose last normal menstrual cycle was at the beginning of November. The patient does complain of mild vaginal spotting is concerned that she may be or having a miscarriage. The patient does complain of mild nausea but denies any vomiting, diarrhea, or vaginal discharge. She denies any associated dysuria, frequency, or urgency. She did not perform a home test prior to arrival. [facility] Past Medical History ADHD: Yes (TOOK ADDERALL 2 YRS AGO) Asthma: Yes Anxiety: Yes Depression: Yes Developmental Delay: No Diabetes: No Diminished Hearing: No Herniated Disk: Yes Respiratory: Yes (ASTHMA) Immunizations Current: Yes Pneumonia: Yes (X 1) ?: Unknown LMP: 11/09/17??? Menopausal: No : 1 Para: 1 : 1 Social History Alcohol Use: No Tobacco Use: No Substance Use: No Allergies-Medications (Allergen,Severity, Reaction): Coded Allergies: No Known Allergies (Unverified Adverse Reaction, Unknown, 12/12/17) Reported Meds & Prescriptions Reported Meds & Active Scripts Active No Active Prescriptions or Reported Medications Review of Systems Except as stated in HPI: all other systems reviewed are Neg General / Constitutional: No: Fever Cardiovascular: No: Chest Pain or Discomfort Respiratory: No: Shortness of Breath Gastrointestinal: Positive: Nausea, No: Vomiting, Diarrhea, Abdominal Pain Genitourinary: Positive: Pelvic Pain, Vaginal Bleeding (spotting), No: Urgency , Frequency, Dysuria Physical Exam Narrative GENERAL: Awake, alert, nontoxic-appearing 22-year-old female who appears her stated age and is in no acute respiratory distress. SKIN: Focused skin assessment warm/dry. HEAD: Atraumatic. Normocephalic. EYES: No injection or drainage. GASTROINTESTINAL: Abdomen soft, mild suprapubic tenderness. Negative McBurney' s. Negative Mi's. Back: No CVA tenderness. MUSCULOSKELETAL: No obvious deformities. No clubbing. No cyanosis. No edema. NEUROLOGICAL: Awake and alert. No obvious cranial nerve deficits. Motor grossly within normal limits. Normal speech. PSYCHIATRIC: Appropriate mood and affect; insight and judgment normal. Data Data Last Documented VS Vital Signs Date Time Temp Pulse Resp B/P (MAP) Pulse Ox O2 Delivery O2 Flow Rate FiO2 12/12/17 11:07 97.9 78 16 123/58 (79) 99 Orders Orders Urinalysis - C+S If Indicated (12/12/17 11:16) Ed Urine Pregnancytest Poc (12/12/17 11:16) Urine Culture (12/12/17 11:15) Labs Laboratory Tests Test 12/12/17 11:15 Urine Collection Type CLEAN CATCH Urine Color YELLOW Urine Turbidity MOD Urine pH 8.5 Urine Specific [place] 1.021 Urine Protein TRACE mg/dL Urine Glucose (UA) NEG mg/dL Urine Ketones NEG mg/dL Urine Occult Blood LARGE Urine Nitrite NEG Urine Bilirubin NEG Urine Leukocyte Esterase NEG Urine RBC 15-19 /hpf Urine Squamous Epithelial Cells > 8 /hpf Urine Amorphous Sediment LARGE Urine Bacteria MOD /hpf Microscopic Urinalysis Comment CULTURE INDICATED Urine Collection Time 1115 [facility] Medical Decision Making Medical Screen Exam Complete: Yes Emergency Medical Condition: Yes Medical Record Reviewed: Yes Interpretation(s) Laboratory Tests Test 12/12/17 11:15 Urine Collection Type CLEAN CATCH Urine Color YELLOW Urine Turbidity MOD Urine pH 8.5 Urine Specific [place] 1.021 Urine Protein TRACE mg/dL Urine Glucose (UA) NEG mg/dL Urine Ketones NEG mg/dL Urine Occult Blood LARGE Urine Nitrite NEG Urine Bilirubin NEG Urine Leukocyte Esterase NEG Urine RBC 15-19 /hpf Urine Squamous Epithelial Cells > 8 /hpf Urine Amorphous Sediment LARGE Urine Bacteria MOD /hpf Microscopic Urinalysis Comment CULTURE INDICATED Urine Collection Time 1115 Differential Diagnosis Differential diagnosis includes , ectopic , threatened AB, UTI , PID, cervicitis, vaginitis, bacterial vaginosis, Trichomonas. Narrative Course A UA was sent to lab and bedside UA test was obtained. test was negative. UA reveals blood and bacteria. I do discussion with the patient regarding performing a pelvic examination in regards to possible cervicitis and/or PID to inquire about gonorrhea/chlamydia and wet prep. However, the patient does not want a pelvic exam performed, I will treat for possible UTI with Bactrim twice a day for 3 days and await culture results. She is advised to return if symptoms worsen or progress. Diagnosis Primary Impression: Pelvic pain in female Additional Impression: Bacteria in urine Patient Instructions: General Instructions Additional Instructions: Return if symptoms worsen or progress. Follow-up with her primary physician. Medications as directed. Med/Other Pt SpecificInfo: Prescription(s) given Scripts Sulfamethoxazole-Trimethoprim (Bactrim DS) 800-160 Mg Tab 1 TAB PO BID for Infection, #6 TAB 0 Refills Prov: Heath Encinas MD 12/12/17 Disposition: DISCHARGE HOME Condition: Stable Heath Encinas MD Dec 12, 2017 11:20
[2017-12-12 11:40] LABS: BILIRUBIN, URINE NEG (NEG); BLOOD, URINE LARGE (NEG); GLUCOSE,URINE NEG (NEG); KETONE, URINE NEG (NEG); NITRITE,URINE NEG (NEG); PH, URINE 8.5 (5.0-8.5); URINE LEUKOCYTE ESTERASE NEG (NEG)
[2017-12-12 11:47] LABS: URINE COLOR YELLOW (YELLW/STRAW)
[2017-12-12 11:48] LABS: AMORPHOUS SEDIMENT, URINE LARGE; RBC, URINE 15-19 /hpf (0-3); SQUAMOUS EPITHELIAL CELL URINE > 8 /hpf (0-5)
[2017-12-12 11:49] LABS: BACTERIA, URINE MOD /hpf
[2017-12-12] MEDS ORDERED: BACT800T5 PO (11:55)
[2017-12-12 12:30] VITALS: BP 124/60
== END 2017-12-12 12:30 | disposition home or self-care (01) ==
LOC: PHED 10:52
DX: R10.2 Pelvic and perineal pain (principal); R82.71 Bacteriuria; R11.0 Nausea; F90.9 Attention-deficit hyperactivity disorder, unspecified type; J45.909 Unspecified asthma, uncomplicated; F41.9 Anxiety disorder, unspecified; F32.9 Major depressive disorder, single episode, unspecified
CPT/HCPCS: 81001; 84703; 87086; 99283